=== PATIENT | female | born 1975 | race Caucasian/White ===

== ENCOUNTER 2021-03-31 13:47 | Emergency (ER) | payer BC, SELFPAY ==
--- NOTE | ~2021-03-31 | XR_ITS ---
EXAMINATION: XR foot LT min 3V EXAM DATE: 03/31/2021 14:02 INDICATION: Fall two weeks ago. Pain left 2-3 toes/metatarsals. TECHNIQUE: Left foot dorsoplantar, lateral and oblique projections obtained and reviewed. There is n o prior study for comparison. FINDINGS: Left metatarsal bones unremarkable. There are no acute fractures or dislocations identifi ed. There is no subcutaneous gas. The soft tissue is unremarkable. There are no radiopaque foreig n bodies. IMPRESSION: No acute osseous findings. Reviewed, dictated and finalized at location B. IMPRESSION: No acute osseous findings.
[2021-03-31 14:02] VITALS: BP 161/81; PULSE 80; RESP 16; TEMP 36.5; O2SAT 100
--- NOTE | 2021-03-31 14:21 | ED.GENADULT ---
HPI - General Adult General Chief complaint: Extremity Injury, Lower Stated complaint: INJURED TOES/FOOT Source: patient Mode of arrival: ambulatory Limitations: no limitations History of Present Illness HPI narrative: Patient is a 45-year-old female who presents to the [facility] via POV for evaluation of left second and third toe pain that has been present for approximately 2 weeks. She states she accidentally fell while mis-stepping on stairs. Symptoms improved with ice and elevation and rest. Weightbearing and prolonged walking worsen symptoms. She states she sits with her foot elevated on a box while at work although by the end of the day the affected area is swollen. She is concerned she may have fractured her foot prompting today's visit. Related Data Home Medications Medication Instructions Recorded Confirmed Lita 03/31/21 Prevacid 03/31/21 ethynodiol diac-eth estradiol tablet 03/31/21 levothyroxine 03/31/21 lorazepam 03/31/21 Allergies Allergy/AdvReac Type Severity Reaction Status Date / Time cat dander Allergy Unknown Rash Verified 02/03/19 16:02 Review of Systems Review of Systems: Denies fever, chills, sweats, change in appetite, poor p.o. intake, malaise, calf tenderness, skin color changes, rash, warmth, numbness, tingling, loss of sensation, deformity, decreased range of motion, weakness, difficulty with ambulation/coordination, nausea, vomiting, lymphadenopathy, shortness of breath, chest pain, heart palpitations, and heart murmur. [facility] Past Medical History Medical History Anxiety GERD (gastroesophageal reflux disease) Hypothyroidism Exam Narrative: GENERAL: Well-appearing, well-nourished, and in no acute distress. HEAD: Normocephalic, atraumatic. NECK: Supple. No Lymphadenopathy or nuchal rigidity appreciated. CHEST: Bilateral lung masters are clear to auscultation. No respiratory distress. No evidence of cough or pleuritic cp upon examination. HEART: Regular rate and rhythm. No murmur, gallop, or rub heard. EXTREMITIES: Mild pain palpated over distal end of second and third metatarsals. No evidence of injury, decreased ROM, swelling, cyanosis, hematoma, laceration, abrasion, deformity, rash, or puncture. No evidence of pain with active/passive ROM. No evidence of dislocation, ligament laxity, effusion, or pain at rest. Pulses palpable at 2+, strength 5/5, and cap refill < 3 seconds in affected extremity. DTRs normal. Gait normal. SKIN: Warm, dry, no rash. NEURO: No focal deficits. Alert and oriented x3. SPECIAL OBSERVATIONS: Smiling. Laughing. Course Vital Signs Vital signs: Vital Signs Temperature 97.7 F 03/31/21 14:02 Pulse Rate 80 03/31/21 14:02 Respiratory Rate 16 03/31/21 14:02 Blood Pressure 161/81 H 03/31/21 14:02 Pulse Oximetry 100 03/31/21 14:02 Temperature 97.7 F 03/31/21 14:02 Pulse Rate 80 03/31/21 14:02 Respiratory Rate 16 03/31/21 14:02 Blood Pressure 161/81 H 03/31/21 14:02 Pulse Oximetry 100 03/31/21 14:02 Medical Decision Making Differential Diagnosis Differential Diagnosis: Sprain, strain, cellulitis, open fracture, closed fracture, gout Medical Records Medical records reviewed: Yes I reviewed the external patient's medical records. Vital Signs Vital Signs: Vital Signs Temperature 97.7 F 03/31/21 14:02 Pulse Rate 80 03/31/21 14:02 Respiratory Rate 16 03/31/21 14:02 Blood Pressure 161/81 H 03/31/21 14:02 Pulse Oximetry 100 03/31/21 14:02 Temperature 97.7 F 03/31/21 14:02 Pulse Rate 80 03/31/21 14:02 Respiratory Rate 16 03/31/21 14:02 Blood Pressure 161/81 H 03/31/21 14:02 Pulse Oximetry 100 03/31/21 14:02 Due to an elevated blood pressure, I had a detailed discussion with the patient and/or guardian regarding the need for follow-up with their primary care provider within the next 3-4 days. Patient verbalized un
== END 2021-03-31 14:36 | disposition home or self-care (01) ==
PROVIDERS: Emergency Provider Nurse Practitioner Family; PCP Nurse Practitioner
DX: S93.601A Unspecified sprain of right foot, initial encounter (principal); W10.9XXA Fall (on) (from) unspecified stairs and steps, initial encounter; K21.9 Gastro-esophageal reflux disease without esophagitis; E03.9 Hypothyroidism, unspecified
CPT/HCPCS: 73630; 99213; G0463